=== PATIENT | female | born 1950 | race Caucasian/White ===

== ENCOUNTER 2019-12-28 10:35 | Emergency (ER) | payer MEDICARE, OTHER, SELFPAY ==
--- NOTE | ~2019-12-28 | XR_ITS ---
EXAMINATION: XR lumbar spine min 4V EXAM DATE: 12/28/2019 11:25 INDICATION: Back pain. TECHNIQUE: Lumber spine frontal, lateral, bilateral oblique projections. Coned down frontal and lat eral L5-S1 lumbar projections for interpretation. There is no prior study for comparison. FINDINGS: There is moderate disc disease L5-S1, mild to moderate at L4-5 and mild at the upper lumbar levels. There is mild to moderate lumbar facet arthropathy. No spondylolysis. 2 mm anterolisthesis L 4 on L5. The vertebral bodies are otherwise aligned. Sacrum, sacroiliac joints, sacral arcuate lines are intact. There are no bony erosions identified. Paraspinal soft tissue is unremarkable. IMPRESSION: Mild to moderate lumbar spondylosis. No acute findings. Reviewed, dictated and finalized at location [facility]. [employer]
[2019-12-28 10:39] VITALS: BP 146/70; PULSE 98; RESP 16; TEMP 36.7; O2SAT 100
--- NOTE | 2019-12-28 11:09 | ED.BACK ---
HPI - Back Pain/Injury General Chief Complaint: Back Pain/Injury Stated Complaint: right lower back and leg pain Time Seen by Provider: 12/28/19 10:53 Source: patient and RN notes reviewed Mode of arrival: ambulatory Limitations: no limitations History of Present Illness HPI Narrative: Pt is a 69 y/o female who presents to the ED with c/o rt low back pain starting 4 days ago. She notes that her pain radiates into her rt groin and down into her rt knee. Pt states that she has tried using both ice and heat on her back, but denies having any relief of her symptoms. She currently denies any fever, rash, or numbness/tingling. MD elicited complaint: back pain Onset (ago): day(s) (4) Location: right lower back Radiation: right upper leg (rt groin into rt knee) Relieving factors: none Associated symptoms: denies other symptoms Treatments prior to arrival: cold therapy and heat therapy Related Data Home Medications Medication Instructions Recorded Confirmed cetirizine 10 mg tablet 10 mg PO DAILY tablet 11/09/19 multivitamin 1 tablet PO DAILY 11/09/19 simvastatin 20 mg tablet 20 mg PO DAILY 11/09/19 Allergies Allergy/AdvReac Type Severity Reaction Status Date / Time Sulfa (Sulfonamide Allergy Severe Other Verified 12/28/19 11:44 Antibiotics) aspirin Allergy Mild Anxiety Verified 12/28/19 11:44 codeine Allergy Mild aggrevates Verified 12/28/19 11:44 ulcer naproxen Allergy Mild Swelling Verified 12/28/19 11:44 of Lip/Tongue/Throat celecoxib [From Celebrex] AdvReac Ulcers Verified 12/28/19 11:44 NSAIDS (Non-Steroidal AdvReac Ulcers Verified 12/28/19 11:44 Anti-Inflamma Review of Systems Review of Systems: All systems reviewed & are unremarkable except as noted in HPI and below Constitutional: Constitutional: Denies fever(s) Musculoskeletal: Musculoskeletal: Reports back pain (rt low back pain radiating into rt groing and down into rt knee) Integumentary/Breasts: Skin/Breast: Denies rash Neurologic: Denies numbness and Denies tingling PMFSH Past Medical History Medical History Anxiety disorder, unspecified Arthritis Bronchitis Gastric ulcer Gastro-esophageal reflux disease without esophagitis Hx of colonic polyps Left inguinal hernia Migraines Mitral valve prolapse Pneumonia Pure hypercholesterolemia Shingles UTI (urinary tract infection) Surgical History Surgical History History of lumpectomy of left breast Hx of section Hx of left inguinal hernia repair Hx of tubal ligation Social History Social History Smoking status: Former smoker Second hand tobacco smoke exposure: No Smoking end date: 11/17/71 Alcohol intake: current Comments PCP is Dr. Goldberg. Exam Narrative: Exam Narrative: APPEARANCE: No acute distress, nontoxic, resting in bed EYES: EOMI HEENT: Normocephalic, atraumatic, OMM RESPIRATORY: No respiratory distress Clear to auscultation bilaterally with no rhonchi wheezing or rales. CARDIOVASCULAR: Regular rate and rhythm without murmurs rubs or gallops. ABDOMINAL: Soft, nontender, nondistended, no rebound or guarding Back: No midline tenderness of the thoracic or lumbar spine, to palpation right paravertebral L4 and 5, and right piriformis region MUSCULOSKELETAl: Moves all extremities. No clubbing, cyanosis or edema. NEURO: Awake and alert. Following commands, speech normal, no focal deficits muscle strength 5 out of 5 in the bilateral lower extremities SKIN:: Warm, dry. No rashes lesions or abrasions PSYCHIATRIC: Normal affect/mood, Course Course Emergency Course: Patient states the only pain medication she can take is acetaminophen states that she cannot take aspirin or ibuprofen Discussed with patient results of workup and diagnosis. Discussed need for follow-up with primary care, proper use of medicati
--- NOTE | 2019-12-28 11:23 | PC.NURSE ---
Patient in radiology at this time.
[2019-12-28 11:48] LABS: Add Urine Microscopic? YES; Appearance Urine Clear (Clear); Bacteria Urine Trace /hpf; Bilirubin Urine Negative (Negative); Blood Urine Negative (Negative); Color Urine Yellow (Yellow); Glucose Urine UA Negative (Negative); Ketones Urine Negative (Negative); Leukocyte Esterase Ur Negative LEU/UL (Negative); Mucus Urine Rare /lpf; Nitrate Urine Negative (Negative); Protein Urine Negative (Negative); Specific Grav Ur 1.012 (1.001-1.035); Squamous Epithelial Cell Urine Rare /hpf (Few); Urobilinogen Urine Negative mg/dL (<2.0); WBC Urine 0-3 /hpf
== END 2019-12-28 13:13 | disposition home or self-care (01) ==
PROVIDERS: Emergency Provider Emergency Medicine; PCP Internal Medicine
DX: M54.5 Low back pain (principal); M47.816 Spondylosis without myelopathy or radiculopathy, lumbar region; Z87.891 Personal history of nicotine dependence; F41.9 Anxiety disorder, unspecified; K21.9 Gastro-esophageal reflux disease without esophagitis; I34.1 Nonrheumatic mitral (valve) prolapse; E78.00 Pure hypercholesterolemia, unspecified; Z87.440 Personal history of urinary (tract) infections
CPT/HCPCS: 72110; 81001; 99283

== ENCOUNTER 2020-01-01 09:24 | Emergency (ER) | payer MEDICARE, OTHER, SELFPAY ==
[2020-01-01 09:39] VITALS: BP 145/88; PULSE 95; RESP 18; TEMP 36.5; O2SAT 99
--- NOTE | 2020-01-01 10:40 | ED.GENADULT ---
HPI - General Adult General Chief complaint: Skin/Abscess/Foreign Body Stated complaint: rash/pain Time Seen by Provider: 01/01/20 09:33 Source: patient Mode of arrival: ambulatory Limitations: no limitations History of Present Illness HPI narrative: Patient is a 69-year-old female who presents to emergency department for evaluation of rash to the right thigh where she has had pain for 9 days patient was seen in the emergency department diagnosed with sciatica a few days ago placed on steroids which she has been taking with no improvement in noting that today she developed a rash patient notes numbness and burning pain to the thigh patient notes small lesions on the thigh patient notes she has had a similar occurrence diagnosed as shingles. Pain is worse with activity and movement Related Data Home Medications Medication Instructions Recorded Confirmed cetirizine 10 mg tablet 10 mg PO DAILY tablet 11/09/19 multivitamin 1 tablet PO DAILY 11/09/19 simvastatin 20 mg tablet 20 mg PO DAILY 11/09/19 Allergies Allergy/AdvReac Type Severity Reaction Status Date / Time Sulfa (Sulfonamide Allergy Severe Other Verified 01/01/20 09:37 Antibiotics) aspirin Allergy Mild Anxiety Verified 01/01/20 09:37 codeine Allergy Mild aggrevates Verified 01/01/20 09:37 ulcer naproxen Allergy Mild Swelling Verified 01/01/20 09:37 of Lip/Tongue/Throat celecoxib [From Celebrex] AdvReac Ulcers Verified 01/01/20 09:37 NSAIDS (Non-Steroidal AdvReac Ulcers Verified 01/01/20 09:37 Anti-Inflamma Review of Systems Review of Systems: All systems reviewed & are unremarkable except as noted in HPI and below PMFSH Past Medical History Medical History Anxiety disorder, unspecified Arthritis Bronchitis Gastric ulcer Gastro-esophageal reflux disease without esophagitis Hx of colonic polyps Left inguinal hernia Migraines Mitral valve prolapse Pneumonia Pure hypercholesterolemia Shingles UTI (urinary tract infection) Surgical History Surgical History History of lumpectomy of left breast Hx of section Hx of left inguinal hernia repair Hx of tubal ligation Social History Social History Smoking status: Former smoker Second hand tobacco smoke exposure: No Smoking end date: 11/17/71 Alcohol intake: current Gender identity (if verbalized by the patient): Female Exam Narrative: Exam Narrative: GENERAL: Well-appearing, well-nourished, and in no acute distress. HEAD: Normocephalic, atraumatic. EYES: PERRLA and EOMI. ENT: Nares clear, no rhinorrhea or epistaxis. Mucous membranes moist. CHEST: Clear to auscultation. No respiratory distress. No wheezes rales or rhonchi HEART: Regular rate and rhythm. No murmur heard. Normal peripheral pulses. EXTREMITIES: Normal range of motion. No edema. SKIN: Warm, dry, a few small lesions of the right thigh noted with tenderness of the thigh remainder of extremity nontender no deformity NEURO: No focal deficits. Alert and oriented x3. Cranial nerves II through XII grossly intact. Neurovascularly intact. Capillary refill less than 2 seconds PSYCH: Normal mood and affect. Course Course Emergency Course: Patient in the room in no distress aware of case findings treatment plan and diagnosis agreeing to follow-up as directed Vital Signs Vital signs: Vital Signs Temperature 97.7 F 01/01/20 09:39 Pulse Rate 95 01/01/20 09:39 Respiratory Rate 18 01/01/20 09:39 Blood Pressure 145/88 H 01/01/20 09:39 Pulse Oximetry 99 01/01/20 09:39 Temperature 97.7 F 01/01/20 09:39 Pulse Rate 95 01/01/20 09:39 Respiratory Rate 18 01/01/20 09:39 Blood Pressure 145/88 H 01/01/20 09:39 Pulse Oximetry 99 01/01/20 09:39 Medical Decision Making MDM Narrative Medical decision making
[2020-01-01 11:03] VITALS: BP 118/75; PULSE 78; RESP 16; O2SAT 100
== END 2020-01-01 11:04 | disposition home or self-care (01) ==
PROVIDERS: Emergency Provider Emergency Medicine; PCP Internal Medicine
DX: M79.651 Pain in right thigh (principal); M54.30 Sciatica, unspecified side; F41.9 Anxiety disorder, unspecified; M19.90 Unspecified osteoarthritis, unspecified site; K21.9 Gastro-esophageal reflux disease without esophagitis; I34.1 Nonrheumatic mitral (valve) prolapse; E78.00 Pure hypercholesterolemia, unspecified; Z87.440 Personal history of urinary (tract) infections; Z87.891 Personal history of nicotine dependence
CPT/HCPCS: 99283

== ENCOUNTER 2020-05-27 13:57 | Emergency (ER) | payer MEDICARE, OTHER, SELFPAY ==
--- NOTE | ~2020-05-27 | CT_ITS ---
EXAMINATION: CT abdomen pelvis w con DATE: 05/27/2020 18:21 INDICATION: Lower abdominal pain TECHNIQUE: Computed tomography (CT) of the abdomen and pelvis was performed with 100 cc Omnipaque 350 intravenous contrast. The dose-length product was 254.71 mGy-cm. Automated exposure control and iter ative reconstruction technique were employed. COMPARISON: CT dated 04/16/2019 FINDINGS: Lung bases are unremarkable. Heart size normal. No significant pleural or pericardial effus ion. No significant vascular abnormality. No lymphadenopathy. The liver, spleen, pancreas, adrenal glands are unremarkable. There are bilateral renal cysts. There is mild-moderate lumbar spondylosis at L4-5 and L5-S1. No acute osseous abnormality. No abnormal pelv ic masses or fluid collections. IMPRESSION: 1. No acute abdominal abnormality. No findings to account for patient's symptoms. Reviewed, dictated and finalized at location A. IMPRESSION: 1. No acute abdominal abnormality. No findings to account for patient's symptom s.
[2020-05-27 14:06] VITALS: BP 132/78; PULSE 106; RESP 18; TEMP 36.6; O2SAT 99
[2020-05-27 14:47] LABS: Add Urine Microscopic? YES; Appearance Urine Clear (Clear); Bacteria Urine Trace /hpf; Bilirubin Urine Negative (Negative); Blood Urine 2+ (Negative); Calcium Oxalate Crystals Urine Present /hpf; Color Urine Yellow (Yellow); Glucose Urine UA Negative (Negative); Ketones Urine Negative (Negative); Leukocyte Esterase Ur Negative LEU/UL (Negative); Mucus Urine Rare /lpf; Nitrate Urine Negative (Negative); Protein Urine Negative (Negative); Specific Grav Ur 1.019 (1.001-1.035); Squamous Epithelial Cell Urine Rare /hpf (Few); Urobilinogen Urine Negative mg/dL (<2.0); WBC Urine 0-3 /hpf
--- NOTE | 2020-05-27 15:41 | ED.ABDPAIN ---
HPI - Abdominal Pain General Chief Complaint: Urogenital-Female Stated Complaint: Possible Kidney Infection Time Seen by Provider: 05/27/20 15:25 Source: patient Mode of arrival: ambulatory Limitations: no limitations History of Present Illness HPI narrative: This patient is a 69 year old female who presents for evaluation of lower abdominal pressure. She reports intermittent lower abdominal pressure for 2 weeks. She also reports lower back pain. She thinks she may have urinary tract infection since she has intermittent increase in urinary frequency and hesitancy. She denies fever or diarrhea. She had 2 bowel movements today. She had 1 episodes of nausea and vomiting last week. MD elicited complaint: abdominal pain Onset (ago): week(s) (2) Related Data Home Medications Medication Instructions Recorded Confirmed cetirizine 10 mg tablet 10 mg PO DAILY tablet 11/09/19 multivitamin 1 tablet PO DAILY 11/09/19 Allergies Allergy/AdvReac Type Severity Reaction Status Date / Time Sulfa (Sulfonamide Allergy Severe Other Verified 05/27/20 15:25 Antibiotics) aspirin Allergy Mild Anxiety Verified 05/27/20 15:25 codeine Allergy Mild aggrevates Verified 05/27/20 15:25 ulcer naproxen Allergy Mild Swelling Verified 05/27/20 15:25 of Lip/Tongue/Throat celecoxib [From Celebrex] AdvReac Ulcers Verified 05/27/20 15:25 NSAIDS (Non-Steroidal AdvReac Ulcers Verified 05/27/20 15:25 Anti-Inflamma Review of Systems Review of Systems: All systems reviewed & are unremarkable except as noted in HPI and below Constitutional: Constitutional: Denies chills and Denies fever(s) Respiratory: Respiratory: Denies cough and Denies dyspnea Gastrointestinal: Gastrointestinal: Reports abdominal pain, Denies constipation, Denies diarrhea, Reports nausea and Reports vomiting Genitourinary: Genitourinary: Reports nocturia and Reports flank pain Musculoskeletal: Musculoskeletal: Reports back pain Neurologic: Denies numbness PMFSH Social History Social History Smoking status: Former smoker Second hand tobacco smoke exposure: No Smoking end date: 11/17/71 Alcohol intake: current Gender identity (if verbalized by the patient): Female Exam Narrative: Exam Narrative: GENERAL: Well-appearing, well-nourished, and in no acute distress. HEAD: Normocephalic, atraumatic NOSE: Nares clear, no rhinorrhea or epistaxis THROAT:Mucous membranes moist, Oropharynx normal without erythema, exudate, peritonsillar swelling or fluctuance NECK: Supple, without lymphadenopathy or mass RESPIRATORY: No respiratory distress, Airway patent, Respirations non-labored, Clear to auscultation without rales, rhonchi or wheeze HEART: Regular rate and rhythm. No murmur heard. Normal peripheral pulses. ABDOMEN: Soft, nontender, nondistended, normal active bowel sounds. No masses. No rebound or guarding, No organomegaly. EXTREMITIES: No edema, normal strength with full range of motion. SKIN: Warm, dry, normal color without rash NEURO: Alert and oriented x3. CN 2-12 grossly intact. No focal deficits. PSYCH: Normal mood and affect. Course Reevaluation(s) Reevaluation #1: I Discussed with patient labs and CT are unremarkable. She will follow up her insurance follow up rep or urologist. Date: 05/27/20 Time: 19:10 Vital Signs Vital signs: Vital Signs Temperature 97.8 F 05/27/20 14:06 Pulse Rate 106 H 05/27/20 14:06 Respiratory Rate 18 05/27/20 14:06 Blood Pressure 132/78 05/27/20 14:06 Pulse Oximetry 99 05/27/20 14:06 Temperature 97.8 F 05/27/20 14:06 Pulse Rate 90 05/27/20 19:17 Respiratory Rate 18 05/27/20 19:17 Blood Pressure 133/96 H 05/27/20 19:17 Pulse Oximetry 100 05/27/20 19:17 MDM - Abdominal Pain Lab Data Attestation: I reviewed the patient's lab results. Result diagrams: 05/27/20 16:47 05/27/20 16:48
[2020-05-27 16:57] LABS: Basophils Absolute Auto 0.1 K/mm3 (0.0-0.1); Basophils Percent Auto 0.8 % (0.2-1.2); Eosinophils Absolute Auto 0.3 K/mm3 (0-0.3); Eosinophils Percent Auto 5.1 % (0-4.4); Hematocrit 40.8 % (37.0-47.0); Hemoglobin 13.5 g/dL (12.0-15.0); Immature Granulocyte Absolute 0.01 K/mm3 (0.00-0.031); Immature Granulocyte Percent A 0.2 % (0-0.5); Lymphocytes Absolute Auto 1.96 K/mm3 (0.9-3.2); Lymphocytes Percent Auto 32.5 % (18.3-44.2); Mean Corpuscular HGB Conc 33.1 g/dl (32-36); Mean Corpuscular Hemoglobin 29.6 pg (26-34); Mean Corpuscular Volume 89.5 fl (80-100); Mean Platelet Volume 9.1 fl (7.4-10.4); Monocytes Absolute Auto 0.3 K/mm3 (0.1-0.6); Neutrophils Absolute Auto 3.4 K/mm3 (1.3-6.7); Neutrophils Percent Auto 56.4 % (45.5-73.1); Platelet Count Result 275 k/mm3 (150-375); Red Blood Count 4.56 M/mm3 (4.2-5.4); Red Cell Distribution Width 12.7 % (11.5-14.5)
--- NOTE | 2020-05-27 17:08 | PC.NURSE ---
Pt's bladder scanned prior to voiding, avg 70cc of urine in bladder per suprapubic scan. Pt voided per toilet, states I feel like a lot came out. It had a pinkish/orangish color to it and didn't burn this time like before . Pt states she feels like she emptied her bladder. Bladder rescanned, found 13ml's of urine x1 scan and the rest read 0ml's. Pt tolerated both pre and post void scans poorly c/o pain to entire abdomen throughout procedure.
[2020-05-27 17:09] LABS: Alanine Aminotransferase 21 U/L (4-35); Albumin Level 4.7 g/dL (3.5-5.1); Alkaline Phosphatase 79 U/L (38-126); Aspartate Amino Transferase 28 U/L (14-36); Bilirubin,Total 0.3 mg/dL (0.2-1.3); Blood Urea Nitrogen 15 mg/dL (7-17); Calcium 9.1 mg/dL (8.4-10.2); Carbon Dioxide 26 mmol/L (22-30); Chloride 105 mmol/L (98-107); Estimated CRCL calculation 59 ml/min; Estimated Glomerular Filt Rate > 60; Glucose 90 mg/dL (65-105); Potassium 3.7 mmol/L (3.4-5.0); Sodium 140 mmol/L (137-145)
[2020-05-27 19:17] VITALS: BP 133/96; PULSE 90; RESP 18; O2SAT 100
== END 2020-05-27 19:20 | disposition home or self-care (01) ==
PROVIDERS: Emergency Medicine Emergency Medical Services; Emergency Provider General Practice; PCP Internal Medicine
DX: R10.30 Lower abdominal pain, unspecified (principal); Z87.891 Personal history of nicotine dependence
CPT/HCPCS: 36415; 74177; 80053; 81001; 85025; 99284; Q9967

== ENCOUNTER 2020-07-05 12:32 | Outpatient (CLI) | payer MEDICARE, OTHER, SELFPAY ==
--- NOTE | 2020-07-05 12:49 | ECHO_ITS ---
Patient Info Name: Danna Gaines Age: 69 years : 1950 Gender: Female Ht: 62 in Wt: 130 lbs BSA: 1.62 m2 HR: 79 bpm BP: 139 / 76 mmHg Heart Rhythm: Sinus Rhythm Technical Quality: Good Exam Date: 07/05/2020 1:21 PM Exam Location: [facility] Patient Status: Outpatient Admit Date: 07/05/2020 Staff Ordering Physician: Stewart Goldberg DO Supervisor [employer]: Louise Moon RDCS Attending Provider: Stewart Goldberg DO Referring Physician: Ashlyn FOSTER; Exam Type: CA echo doppler color flow Study Info Indications - palpitations Complete two-dimensional, color flow and Doppler transthoracic echocardiogram is performed. Summary 1. Left ventricular systolic function is normal, estimated at 60-65%. 2. There is no increased left ventricular wall thickness. 3. The left ventricular diastolic function is grade I diastolic dysfunction. 4. There is no aortic valve stenosis. 5. There is trace mitral valve regurgitation. 6. There is trace tricuspid valve regurgitation. Left Ventricle Left ventricular systolic function is normal, estimated at 60-65%. Left ventricular chamber dimension is normal. There is no increased left ventricular wall thickness. The left ventricular diastolic function is grade I diastolic dysfunction. Right Ventricle Right ventricular chamber dimension is normal. Right ventricular systolic function is normal. Left Atria Left atrial chamber dimension is normal. Right Atria Right atrial chamber dimension is normal. Aortic Valve The aortic valve is not well visualized. There is no aortic valve stenosis. There is no aortic valve regurgitation. Pulmonic Valve The pulmonic valve is not well visualized. There is trace pulmonic regurgitation. Mitral Valve The mitral valve has normal leaflets. There is trace mitral valve regurgitation. Tricuspid Valve The tricuspid valve leaflets are normal. There is trace tricuspid valve regurgitation. Pericardium/Pleural The pericardium appears normal. There is trivial pericardial effusion. Inferior Vena Cava Normal inferior vena cava with >50% collapse upon inspiration consistent with normal right atrial pressure, 5 mmHg. Aorta The aortic root size at the sinus of Valsalva is normal. Left Ventricular Outflow Tract Name Value Normal LVOT 2D LVOT Diameter 2.0 cm LVOT Doppler LVOT Peak Gradient 3 mmHg LVOT Mean Gradient 2 mmHg LVOT VTI 19 cm LVOT VTI/AV VTI Ratio 0.7 LVOT Stroke Volume 57 ml LVOT CO 11.5 l/min LVOT CI 7.1 l/min/m2 Pulmonic Valve Name Value Normal PV Doppler PV Peak Gradient 2 mmHg Mitral Valve -
--- NOTE | 2020-07-07 12:34 | WPDHOLTEREM ---
Holter/Event Monitor Holter/Event Monitor Date of procedure: 07/05/20 Procedure Type: 24 hour holter monitor Indications: Palpitations Conclusion: 1. 24 hour holter monitor on 07/05/20. 2. Underlying rhythm is sinus rhythm. HR range 62-128 bpm; average HR 87 bpm. 3. There are 26 premature supraventricular complexes. No supraventricular tachycardia. 4. There are 109 premature ventricular complexes and 2 ventricular couplets. No ventricular tachycardia. 5. No sinoatrial or atrioventricular blocks. No significant pauses greater than 2 seconds. 6. Patient reports symptoms of shortness of breath and back pain which demonstrate Sinus rhythm, HR range 97-119 bpm.
== END 2020-07-05 12:33 | disposition home or self-care (01) ==
PROVIDERS: PCP Internal Medicine; Visit Provider Internal Medicine
DX: R00.2 Palpitations (principal)
CPT/HCPCS: 93225; 93226; 93306

== ENCOUNTER → 2021-01-08 09:55 | Outpatient (CLI) | payer MEDICARE, OTHER, SELFPAY ==
[2021-01-09 14:42] LABS: SARS-CoV-2 RNA PCR Positive
== END ==
PROVIDERS: PCP Internal Medicine; Visit Provider Internal Medicine
DX: U07.1 COVID-19 (principal); R05 Cough
CPT/HCPCS: C9803; U0003; U0005

== ENCOUNTER 2021-01-11 13:10 | Outpatient (RCR) | payer MEDICARE, OTHER, SELFPAY ==
[2021-01-11] MEDS: diphenhydrAMINE HCl CAP 25 MG CAPSULE PO (13:41)
[2021-01-11] MEDS: FAMOTIDINE 20 MG TABLET PO (13:42)
[2021-01-11] MEDS: ACETAMINOPHEN 325 MG TABLET 650 MG PO (13:42)
[2021-01-11 13:54] VITALS: BP 117/56; PULSE 98; RESP 16; TEMP 37.3; O2SAT 96
--- NOTE | 2021-01-11 14:50 | PC.NURSE ---
Patient given discharge instructions on antibody treatment and facts sheet on covid and Bamlanivimab with understanding stated to instruction.
[2021-01-11 15:23] VITALS: BP 111/51; PULSE 91; O2SAT 97
== END 2021-01-11 16:30 | disposition home or self-care (01) ==
LOC: AMCINF 13:10
PROVIDERS: PCP Internal Medicine; Visit Provider Internal Medicine Hematology & Oncology
DX: Z23 Encounter for immunization (principal); U07.1 COVID-19
CPT/HCPCS: A9270; M0239; Q0239

== ENCOUNTER 2022-05-14 01:24 | Day surgery (SDC) | payer MEDICARE, OTHER, SELFPAY ==
[2022-04-25 14:52] VITALS: BMI 23.3
[2022-05-14 09:40] VITALS: BP 169/74; PULSE 89; RESP 16; TEMP 36.6; O2SAT 100; BMI 23.8
--- NOTE | 2022-05-14 09:53 | PM.IMHP ---
H&P: HPI History of Present Illness Date/Time: 05/14/22 09:53 Chief Complaint: Dysphagia. Narrative: This is a 71-year-old white female patient referred for difficulty swallowing. She states she has a funny sensation in her throat. She states that often times she will eat food in the regurgitate phlegm. The not always the food that she eats. This been going on for many years. She has recently had epigastric discomfort that she states has rather significant. This is not responded to current medications. That include omeprazole 20mg p.o. daily. Patient denies any heartburn. She denies any weight loss. EGD 3 years ago was unremarkable but empiric dilatation was performed. She is uncertain whether this made any difference in her swallowing. Patient also has a Family history of colon cancer. Most recent colonoscopy 2018 was unremarkable. She anticipates follow-up colonoscopy in 2 years. Review of Systems Review of Systems: Noncontributory review of systems. [facility] Past Medical History Medical History (Updated 05/14/22 @ 09:56 by Stef Lagos MD) Anxiety disorder, unspecified Arthritis Bronchitis Gastric ulcer Gastro-esophageal reflux disease without esophagitis Hx of colonic polyps Left inguinal hernia Migraines Mitral valve prolapse Pneumonia Pure hypercholesterolemia Shingles UTI (urinary tract infection) Surgical History Surgical History History of lumpectomy of left breast Hx of section Hx of left inguinal hernia repair Hx of tubal ligation Family History Family History Father Carcinoma of colon Mother Acute myocardial infarction Heart disease Sibling Brain aneurysm Colon cancer Other Family history of malignant neoplasm of breast Social History Social History Smoking status: Never smoker Second hand tobacco smoke exposure: No Smoking end date: 11/17/71 Alcohol intake: current Drinks per week: 3 Substance use: never Substance use type: does not use Living arrangements: with family Gender identity (if verbalized by the patient): Female Spiritual care concerns: No Meds Home Medications and Allergies Home Medications Medication Instructions Recorded Confirmed Type cetirizine 10 mg tablet (Zyrtec) 10 mg PO DAILY 11/09/19 05/14/22 History multivitamin (Multiple Vitamins 1 tablet PO DAILY 11/09/19 05/14/22 History tablet) alprazolam 0.5 mg tablet 0.5 mg PO BID PRN anxiety #20 tabs 12/18/21 05/14/22 Rx simvastatin 20 mg tablet 20 mg PO DAILY #90 tabs 02/27/22 05/14/22 Rx fluticasone propionate 50 2 spray intranasal DAILY #15.8 mL 04/17/22 05/14/22 Rx mcg/actuation nasal spray,suspension omeprazole 20 mg capsule,delayed 20 mg PO DAILY #90 caps 04/21/22 05/14/22 Rx release Zinc 15 mg PO DAILY 04/25/22 05/14/22 History cholecalciferol (vitamin D3) 25 25 mcg PO DAILY 04/25/22 05/14/22 History mcg (1,000 unit) capsule Allergies Allergy/AdvReac Type Severity Reaction Status Date / Time Sulfa (Sulfonamide Allergy Severe Other Verified 05/14/22 09:47 Antibiotics) aspirin Allergy Mild Anxiety Verified 05/14/22 09:47 codeine Allergy Mild aggrevates Verified 05/14/22 09:47 ulcer naproxen Allergy Mild Swelling Verified 05/14/22 09:47 of Lip/Tongue/Throat celecoxib [From Celebrex] AdvReac Ulcers Verified 05/14/22 09:47 NSAIDS (Non-Steroidal AdvReac Ulcers Verified 05/14/22 09:47 Anti-Inflamma Vital Signs Vital Signs - 24 hr 05/14/22 09:40 Temperature 97.8 F Pulse Rate 89 Respiratory Rate 16 Blood Pressure 169/74 H Pulse Oximetry 100 Oxygen Delivery Room Air Exam Narrative: Physical exam reveals patient to be alert. Vital signs stable. HEENT exam is unremarkable. Patient is anicteric. Lungs are clear to
[2022-05-14] MEDS: LACTATED RINGERS 1,000 ML 150 ML IV CONT (10:04)
[2022-05-14] MEDS: BENZOCAINE (*SP) 60 ML SPRAY CAN (HURRICAINE) 1 SPRAY MUCOUS MEM (10:57)
--- NOTE | 2022-05-14 10:59 | WPDANESEPPF ---
Anes - Initial Pre Proc Eval Procedure: Operation Date: 05/14/22 11:15 Proposed Procedures p Esophagogastroduodenoscopy - Stef Lagos MD Date/Time: 05/14/22 10:59 Surgeon: Stef Lagos MD Pre Op Diagnosis: dysphagia Patient Data Age: 71 Gender: F Height: 1.57 m Weight: 59.2 kg Last Vital Signs Temp 97.8 F 05/14/22 09:40 Pulse 89 05/14/22 09:40 Resp 16 05/14/22 09:40 BP 169/74 H 05/14/22 09:40 Pulse Ox 100 05/14/22 09:40 O2 Del Method Room Air 05/14/22 09:40 Allergies Allergy/AdvReac Type Severity Reaction Status Date / Time Sulfa (Sulfonamide Allergy Severe Other Verified 05/14/22 09:47 Antibiotics) aspirin Allergy Mild Anxiety Verified 05/14/22 09:47 codeine Allergy Mild aggrevates Verified 05/14/22 09:47 ulcer naproxen Allergy Mild Swelling Verified 05/14/22 09:47 of Lip/Tongue/Throat celecoxib [From Celebrex] AdvReac Ulcers Verified 05/14/22 09:47 NSAIDS (Non-Steroidal AdvReac Ulcers Verified 05/14/22 09:47 Anti-Inflamma Home Medications Medication Instructions Recorded Confirmed Type cetirizine 10 mg tablet (Zyrtec) 10 mg PO DAILY 11/09/19 05/14/22 History multivitamin (Multiple Vitamins 1 tablet PO DAILY 11/09/19 05/14/22 History tablet) alprazolam 0.5 mg tablet 0.5 mg PO BID PRN anxiety #20 tabs 12/18/21 05/14/22 Rx simvastatin 20 mg tablet 20 mg PO DAILY #90 tabs 02/27/22 05/14/22 Rx fluticasone propionate 50 2 spray intranasal DAILY #15.8 mL 04/17/22 05/14/22 Rx mcg/actuation nasal spray,suspension omeprazole 20 mg capsule,delayed 20 mg PO DAILY #90 caps 04/21/22 05/14/22 Rx release Zinc 15 mg PO DAILY 04/25/22 05/14/22 History cholecalciferol (vitamin D3) 25 25 mcg PO DAILY 04/25/22 05/14/22 History mcg (1,000 unit) capsule Patient hx anesthesia problems: none Family hx anesthesia problems: none Results Review: All pre-operative results and documents have been reviewed as part of the pre-operative evaluation. [facility] Past Medical History Medical History (Updated 05/14/22 @ 09:56 by Stef Lagos MD) Anxiety disorder, unspecified Arthritis Bronchitis Gastric ulcer Gastro-esophageal reflux disease without esophagitis Hx of colonic polyps Left inguinal hernia Migraines Mitral valve prolapse Pneumonia Pure hypercholesterolemia Shingles UTI (urinary tract infection) Surgical History Surgical History History of lumpectomy of left breast Hx of section Hx of left inguinal hernia repair Hx of tubal ligation Family History Family History Father Carcinoma of colon Mother Acute myocardial infarction Heart disease Sibling Brain aneurysm Colon cancer Other Family history of malignant neoplasm of breast Social History Social History Smoking status: Never smoker Second hand tobacco smoke exposure: No Smoking end date: 11/17/71 Alcohol intake: current Drinks per week: 3 Substance use: never Substance use type: does not use Living arrangements: with family Gender identity (if verbalized by the patient): Female Spiritual care concerns: No Anes - Eval Final PreProcedure Day of Procedure 05/14/22 10:59 Patient weight: normal Heart: regular rate and rhythm Lungs: clear to auscultation Airway: Mallampati scale class II Neurological: alert and oriented Last oral intake: >/= 8 hours ASA classification: II Emergent: no Anesthetic plan: proceed Anesthesia type and monitoring: general GIVS and standard monitoring Results Review: All pre-operative results and documents have been reviewed as part of the pre-operative evaluation. Informed Consent: The patient's anesthetic plan and its attendant risks and benefits were discussed with the patient/family/POA. Questions were solicited and
[2022-05-14 11:06] VITALS: BP 135/68; PULSE 79; RESP 19; O2SAT 100
[2022-05-14 11:16] VITALS: BP 150/72; PULSE 75; RESP 23; O2SAT 99
[2022-05-14 11:26] VITALS: BP 154/81; PULSE 71; RESP 16; O2SAT 96
== END 2022-05-14 11:29 | disposition home or self-care (01) ==
PROVIDERS: PCP Internal Medicine; Visit Provider Internal Medicine Gastroenterology
PROC: 0DJ08ZZ Inspection of Upper Intestinal Tract, Via Natural or Artificial Opening Endoscopic (ICD-10-PCS; CPT 43235; principal; 2022-05-14 11:15)
DX: Q39.4 Esophageal web (principal); K21.00 Gastro-esophageal reflux disease with esophagitis, without bleeding; I34.1 Nonrheumatic mitral (valve) prolapse; F41.9 Anxiety disorder, unspecified; E78.00 Pure hypercholesterolemia, unspecified
CPT/HCPCS: 43450; 43235; J2704; J7120

== ENCOUNTER 2023-07-14 15:26 | Outpatient (CLI) | payer MEDICARE, OTHER, SELFPAY ==
--- NOTE | ~2023-07-14 | US_ITS ---
EXAMINATION: US renal BI DATE: 07/14/2023 15:56 INDICATION: Renal cysts. TECHNIQUE: Multiple ultrasound grayscale images of the kidneys were obtained. COMPARISON: CT abdomen and pelvis 05/27/2020 FINDINGS: The right kidney measures 9.6 x 5.3 x 4.9 cm. The left kidney measures 11.6 x 5.7 x 5.0 cm. The kidne ys demonstrate normal parenchymal echogenicity. There are cysts in the kidneys including peripelvic c ysts measuring up to 3.4 cm on the right. There is no hydronephrosis. The bladder is not well distend ed. IMPRESSION: 1. Benign cysts in the kidneys. Reviewed, dictated and finalized at location E.
== END 2023-07-14 15:27 | disposition home or self-care (01) ==
PROVIDERS: PCP Internal Medicine; Visit Provider Internal Medicine
DX: N28.1 Cyst of kidney, acquired (principal)
CPT/HCPCS: 76775

== ENCOUNTER 2024-09-02 05:38 | Day surgery (SDC) | payer MEDICARE, OTHER, SELFPAY ==
[2024-07-12 13:49] VITALS: BMI 24.2
[2024-08-16 11:05] VITALS: BMI 23.8
--- NOTE | 2024-09-01 17:03 | WPDANESEPP ---
Anes - Eval Pre Procedure Procedure: Operation Date: 09/02/24 07:30 Proposed Procedures p Diagnostic Colonoscopy - Stef Lagos MD Date/Time: 09/01/24 17:03 Pre Op Diagnosis: Family HX of Colon Cancer Patient Data Age: 73 Gender: F Height: 1.57 m Weight: 59 kg Allergies Allergy/AdvReac Type Severity Reaction Status Date / Time Sulfa (Sulfonamide Allergy Severe Chest Pain Verified 08/16/24 11:06 Antibiotics) aspirin Allergy Mild Anxiety Verified 08/16/24 11:06 codeine Allergy Mild aggrevates Verified 08/16/24 11:06 ulcer naproxen Allergy Mild Swelling Verified 08/16/24 11:06 of Lip/Tongue/Throat celecoxib [From Celebrex] AdvReac Ulcers Verified 08/16/24 11:06 NSAIDS (Non-Steroidal AdvReac Ulcers Verified 08/16/24 11:06 Anti-Inflamma Home Medications Medication Instructions Recorded Confirmed Type multivitamin (Multiple Vitamins 1 tablet PO DAILY 11/09/19 08/16/24 History tablet) cetirizine 10 mg tablet (Zyrtec) 10 mg PO DAILY #90 tabs 01/06/24 08/16/24 Rx cholecalciferol (vitamin D3) 25 25 mcg PO DAILY #90 caps 01/06/24 08/16/24 Rx mcg (1,000 unit) capsule omeprazole 40 mg capsule,delayed 40 mg PO DAILY #90 caps 01/06/24 08/16/24 Rx release simvastatin 40 mg tablet 40 mg PO DAILY #90 tabs 01/06/24 08/16/24 Rx sodium,potassium,mag sulfates 17.5 See Rx Instructions PO .COMPLEX 07/12/24 Rx gram-3.13 gram-1.6 gram oral soln #354 mL (Suprep Bowel Prep Kit) fluticasone propionate 50 2 spray intranasal DAILY #15.8 mL 07/28/24 08/16/24 Rx mcg/actuation nasal spray,suspension Patient hx anesthesia problems: none Family hx anesthesia problems: none Results Review: All pre-operative results and documents have been reviewed as part of the pre-operative evaluation. [facility] Past Medical History Medical History Anxiety Anxiety disorder, unspecified Arthritis Bronchitis Esophageal web Gastric ulcer Gastro-esophageal reflux disease without esophagitis GERD (gastroesophageal reflux disease) Hx of colonic polyps Hyperlipidemia LAE (left atrial enlargement) Left inguinal hernia Migraines Mitral valve prolapse Palpitations Pneumonia Pure hypercholesterolemia Shingles UTI (urinary tract infection) Surgical History Surgical History History of lumpectomy of left breast Hx of section Hx of left inguinal hernia repair Hx of tubal ligation Family History Family History Father Carcinoma of colon Mother Acute myocardial infarction Heart disease Sibling Brain aneurysm Colon cancer Other Family history of malignant neoplasm of breast Social History Social History Smoking status: Never smoker Second hand tobacco smoke exposure: No Smoking end date: 11/17/71 Alcohol intake: current Drinks per week: 4 Substance use: never Substance use type: does not use Lack of Transportation: No Lack of Food: Never True Current Housing: I Have Housing Concerned About Future Housing: No Difficulty Paying Gas/Electric Bills: No Difficulty Paying for Meds: No Currently Unemployed: No Education: High School Diploma/GED Difficulty w/ Childcare or Family Care: No Living arrangements: with family Gender identity (if verbalized by the patient): Female Spiritual care concerns: No Exam Day of Procedure 09/01/24 17:03 Patient weight: normal
[2024-09-02 06:22] VITALS: BP 184/84; PULSE 87; RESP 16; TEMP 36.7; O2SAT 100; BMI 24.0
--- NOTE | 2024-09-02 06:49 | WPDANESEPPF ---
Anes - Initial Pre Proc Eval Procedure: Operation Date: 09/02/24 07:30 Proposed Procedures p Diagnostic Colonoscopy - Stef Lagos MD Date/Time: 09/02/24 06:49 Surgeon: Stef Lagos MD Pre Op Diagnosis: Family HX of Colon Cancer Patient Data Age: 73 Gender: F Height: 1.57 m Weight: 59.6 kg Last Vital Signs Temp 36.7 C 09/02/24 06:22 Pulse 87 09/02/24 06:22 Resp 16 09/02/24 06:22 BP 184/84 H 09/02/24 06:22 Pulse Ox 100 09/02/24 06:22 O2 Del Method Room Air 09/02/24 06:22 Allergies Allergy/AdvReac Type Severity Reaction Status Date / Time Sulfa (Sulfonamide Allergy Severe Chest Pain Verified 09/02/24 06:15 Antibiotics) aspirin Allergy Mild Anxiety Verified 09/02/24 06:15 codeine Allergy Mild aggrevates Verified 09/02/24 06:15 ulcer naproxen Allergy Mild Swelling Verified 09/02/24 06:15 of Lip/Tongue/Throat celecoxib [From Celebrex] AdvReac Ulcers Verified 09/02/24 06:15 NSAIDS (Non-Steroidal AdvReac Ulcers Verified 09/02/24 06:15 Anti-Inflamma Home Medications Medication Instructions Recorded Confirmed Type multivitamin (Multiple Vitamins 1 tablet PO DAILY 11/09/19 09/02/24 History tablet) cetirizine 10 mg tablet (Zyrtec) 10 mg PO DAILY #90 tabs 01/06/24 09/02/24 Rx cholecalciferol (vitamin D3) 25 25 mcg PO DAILY #90 caps 01/06/24 09/02/24 Rx mcg (1,000 unit) capsule omeprazole 40 mg capsule,delayed 40 mg PO DAILY #90 caps 01/06/24 09/02/24 Rx release simvastatin 40 mg tablet 40 mg PO DAILY #90 tabs 01/06/24 09/02/24 Rx fluticasone propionate 50 2 spray intranasal DAILY #15.8 mL 07/28/24 09/02/24 Rx mcg/actuation nasal spray,suspension Patient hx anesthesia problems: none Family hx anesthesia problems: none Results Review: All pre-operative results and documents have been reviewed as part of the pre-operative evaluation. [facility] Past Medical History Medical History Anxiety Anxiety disorder, unspecified Arthritis Bronchitis Esophageal web Gastric ulcer Gastro-esophageal reflux disease without esophagitis GERD (gastroesophageal reflux disease) Hx of colonic polyps Hyperlipidemia LAE (left atrial enlargement) Left inguinal hernia Migraines Mitral valve prolapse Palpitations Pneumonia Pure hypercholesterolemia Shingles UTI (urinary tract infection) Surgical History Surgical History History of lumpectomy of left breast Hx of section Hx of left inguinal hernia repair Hx of tubal ligation Family History Family History Father Carcinoma of colon Mother Acute myocardial infarction Heart disease Sibling Brain aneurysm Colon cancer Other Family history of malignant neoplasm of breast Social History Social History Smoking status: Never smoker Second hand tobacco smoke exposure: No Smoking end date: 11/17/71 Alcohol intake: current Drinks per week: 4 Substance use: never Substance use type: does not use Lack of Transportation: No Lack of Food: Never True Current Housing: I Have Housing Concerned About Future Housing: No Difficulty Paying Gas/Electric Bills: No Difficulty Paying for Meds: No Currently Unemployed: No Education: High School Diploma/GED Difficulty w/ Childcare or Family Care: No Living arrangements: with family Gender identity (if verbalized by the patient): Female Spiritual care concerns: No Anes - Eval Final PreProcedure Day of Procedure 09/02/24 06:49 Patient weight: normal Heart: regular rate and rhythm Lungs: clear to auscultation and normal air movement Airway: Mallampati scale class II Neurological: alert and oriented Last oral intake: >/= 8 hours ASA classification: II Emergent: no An
[2024-09-02] MEDS: LACTATED RINGERS 1,000 ML 150 ML IV CONT (06:52)
--- NOTE | 2024-09-02 07:15 | PM.HPGS ---
History of Present Illness History of Present Illness Consent: Risks, benefits, and alternatives have been discussed and questions answered. Patient agrees to proceed with procedure. Chief complaint: Family HX of Colon Cancer Narrative: Danna Gaines is a 73 year old female colonoscopy. Patient's family history is significant her sister was recently diagnosed with colon cancer. Mother has colon polyps. Her father had colon cancer at an older age. Patient reports her bowel habits are normal. She has occasional abdominal bloating. Occasional rectal bleeding attributed to hemorrhoids. Patient presents today for surveillance colonoscopy. Review of Systems Review of Systems: All systems reviewed & are unremarkable except as noted in HPI and below PMFSH Past Medical History Medical History Anxiety Anxiety disorder, unspecified Arthritis Bronchitis Esophageal web Gastric ulcer Gastro-esophageal reflux disease without esophagitis GERD (gastroesophageal reflux disease) Hx of colonic polyps Hyperlipidemia LAE (left atrial enlargement) Left inguinal hernia Migraines Mitral valve prolapse Palpitations Pneumonia Pure hypercholesterolemia Shingles UTI (urinary tract infection) Surgical History Surgical History History of lumpectomy of left breast Hx of section Hx of left inguinal hernia repair Hx of tubal ligation Family History Family History Father Carcinoma of colon Mother Acute myocardial infarction Heart disease Sibling Brain aneurysm Colon cancer Other Family history of malignant neoplasm of breast Social History Social History Smoking status: Never smoker Second hand tobacco smoke exposure: No Smoking end date: 11/17/71 Alcohol intake: current Drinks per week: 4 Substance use: never Substance use type: does not use Lack of Transportation: No Lack of Food: Never True Current Housing: I Have Housing Concerned About Future Housing: No Difficulty Paying Gas/Electric Bills: No Difficulty Paying for Meds: No Currently Unemployed: No Education: High School Diploma/GED Difficulty w/ Childcare or Family Care: No Living arrangements: with family Gender identity (if verbalized by the patient): Female Spiritual care concerns: No Meds Home Medications and Allergies Home Medications Medication Instructions Recorded Confirmed Type multivitamin (Multiple Vitamins 1 tablet PO DAILY 11/09/19 09/02/24 History tablet) cetirizine 10 mg tablet (Zyrtec) 10 mg PO DAILY #90 tabs 01/06/24 09/02/24 Rx cholecalciferol (vitamin D3) 25 25 mcg PO DAILY #90 caps 01/06/24 09/02/24 Rx mcg (1,000 unit) capsule omeprazole 40 mg capsule,delayed 40 mg PO DAILY #90 caps 01/06/24 09/02/24 Rx release simvastatin 40 mg tablet 40 mg PO DAILY #90 tabs 01/06/24 09/02/24 Rx fluticasone propionate 50 2 spray intranasal DAILY #15.8 mL 07/28/24 09/02/24 Rx mcg/actuation nasal spray,suspension Allergies Allergy/AdvReac Type Severity Reaction Status Date / Time Sulfa (Sulfonamide Allergy Severe Chest Pain Verified 09/02/24 06:15 Antibiotics) aspirin Allergy Mild Anxiety Verified 09/02/24 06:15 codeine Allergy Mild aggrevates Verified 09/02/24 06:15 ulcer naproxen Allergy Mild Swelling Verified 09/02/24 06:15 of Lip/Tongue/Throat celecoxib [From Celebrex] AdvReac Ulcers Verified 09/02/24 06:15 NSAIDS (Non-Steroidal AdvReac Ulcers Verified 09/02/24 06:15 Anti-Inflamma Vital Signs Vital Signs - 24 hr 09/02/24 06:22 Temperature 98.1 F Pulse Rate 87 Respiratory Rate 16 Blood Pressure 184/84 H Pulse Oximetry 100 Oxygen Delivery Room Air Exam Narrative: Physical exam reveals patie
[2024-09-02] MEDS: SIMETHICONE ORAL SUSPENSION 20 MG/0.3 ML 30 ML BOTTLE 0.6 ML IRRIGATION (07:45)
[2024-09-02 07:46] VITALS: BP 131/63; PULSE 95; RESP 16; O2SAT 98
[2024-09-02 07:56] VITALS: BP 127/68; PULSE 85; RESP 16; O2SAT 97
[2024-09-02 08:06] VITALS: BP 150/78; PULSE 73; RESP 15; O2SAT 99
--- NOTE | 2024-09-02 12:42 | WPDANESPN ---
Anes - Prog Note Post-Op Date/Time: 09/02/24 12:42 Cardiovascular status: normal Respiratory status: normal Airway patency: baseline Mental status: baseline Post-Op hydration status: normal Vital Signs: Last Vital Signs Temp 36.7 C 09/02/24 06:22 Pulse 73 09/02/24 08:06 Resp 15 09/02/24 08:06 BP 150/78 H 09/02/24 08:06 Pulse Ox 99 09/02/24 08:06 O2 Del Method Room Air 09/02/24 08:06 Pain Score (VAS): 0 I/O: Intake & Output 09/01/24 09/02/24 09/02/24 23:59 07:59 15:59 Intake Total 650 Balance 650 Post-procedural complaints: none Patient Feedback: Patient satisfied with anesthetic care. Other Findings: Patient vital signs back to baseline. Patient denies nausea and vomiting. Patient's pain under control. Patient OK for discharge.
== END 2024-09-02 08:13 | disposition home or self-care (01) ==
PROVIDERS: PCP Internal Medicine; Visit Provider Internal Medicine Gastroenterology
PROC: 0DJD8ZZ Inspection of Lower Intestinal Tract, Via Natural or Artificial Opening Endoscopic (ICD-10-PCS; CPT 45378; principal; 2024-09-02 07:30)
DX: Z80.0 Family history of malignant neoplasm of digestive organs (principal); K57.30 Diverticulosis of large intestine without perforation or abscess without bleeding; K64.8 Other hemorrhoids
CPT/HCPCS: G0105

== ENCOUNTER 2024-11-30 11:20 | Emergency (ER) | payer MEDICARE, OTHER, SELFPAY ==
--- NOTE | ~2024-11-30 | XR_ITS ---
EXAMINATION: XR chest 2V DATE: 11/30/2024 12:03 INDICATION: Productive cough. TECHNIQUE: Frontal and lateral views of the chest were obtained. COMPARISON: Chest 2 views 01/12/2015 FINDINGS: There is mild scarring in the upper lobes. No pleural effusion or pneumothorax. The heart s ize is normal. IMPRESSION: 1. Stable mild scarring in the upper lobes. Reviewed, dictated and finalized at location A. [employer]STAT[employer]
--- NOTE | 2024-11-30 11:22 | ED_ITS ---
HPI - URI/Sore Throat General Chief Complaint: Upper Respiratory Infection Stated Complaint: sinus issue,cough Time Seen by Provider: 11/30/24 11:45 Source: patient, RN notes reviewed and old records reviewed Mode of arrival: ambulatory Limitations: no limitations History of Present Illness HPI Narrative: [age] female presents to the [facility] with 3 day history of sinus congestion, chest congestion, cough for 3 days. Also reports generalized body aches. Has taken Tylenol and Mucinex. Denies fevers. Denies chest pain. Onset (ago): day(s) (3) Related Data Home Medications ?Medication ?Instructions ?Recorded ?Confirmed ?Last Taken ?Type multivitamin (Multiple Vitamins 1 tablet PO DAILY 11/09/19 11/30/24 08/30/24 History tablet) Allergies Allergy/AdvReac Type Severity Reaction Status Date / Time Sulfa (Sulfonamide Allergy Severe Chest Pain Verified 11/30/24 11:26 Antibiotics) aspirin Allergy Mild Anxiety Verified 11/30/24 11:26 codeine Allergy Mild aggrevates Verified 11/30/24 11:26 ulcer naproxen Allergy Mild Swelling Verified 11/30/24 11:26 of Lip/Tongue/Throat celecoxib (From Celebrex) AdvReac Ulcers Verified 11/30/24 11:26 NSAIDS (Non-Steroidal AdvReac Ulcers Verified 11/30/24 11:26 Anti-Inflamma Review of Systems Review of Systems: All systems reviewed & are unremarkable except as noted in HPI and below Constitutional: Constitutional: Reports no additional constitutional complaints ENT: Reports as per HPI Cardiovascular: Cardiovascular: Reports no additional cardiovascular complaints, Denies chest pain and Denies dyspnea Respiratory: Respiratory: Reports as per HPI, Reports chest congestion, Reports cough and Denies dyspnea Musculoskeletal: Musculoskeletal: Reports no additional musculoskeletal complaints Integumentary/Breasts: Skin/Breast: Reports system reviewed and no additional complaints, except as docu PMFSH Past Medical History Medical History Esophageal web GERD (gastroesophageal reflux disease) Anxiety Hyperlipidemia LAE (left atrial enlargement) Palpitations Shingles Arthritis UTI (urinary tract infection) Left inguinal hernia Hx of colonic polyps Gastric ulcer Pneumonia Bronchitis Mitral valve prolapse Migraines Anxiety disorder, unspecified Gastro-esophageal reflux disease without esophagitis Pure hypercholesterolemia Surgical History Surgical History History of lumpectomy of left breast Hx of section Hx of tubal ligation Hx of left inguinal hernia repair Family History Family History Father Carcinoma of colon Mother Acute myocardial infarction Heart disease Sibling Brain aneurysm Colon cancer Other Family history of malignant neoplasm of breast Social History Social History Smoking status: Never smoker Second hand tobacco smoke exposure: No Smoking end date: 11/17/71 Alcohol intake: current Drinks per week: 4 Substance use: never Substance use type: does not use Lack of Transportation: No Lack of Food: Never True Current Housing: I Have Housing Concerned About Future Housing: No Difficulty Paying Gas/Electric Bills: No Difficulty Paying for Meds: No Currently Unemployed: No Education: High School Diploma/GED Difficulty w/ Childcare or Family Care: No Living arrangements: with family Gender identity (if verbalized by the patient): Female Spiritual care concerns: No Comments At the time of my signature, I reviewed and agree with the nursing past medical, surgical, social, and family history. There is no relevant family history pertinent to the patient complaint. Exam Const: General: cooperative, healthy appearing, comfortable, no acute distress, well developed, alert and well nourished Nutritional Appearance: well nourished Orientation/consciousness: patient oriented x3 Limitations: no limitations HENMT: Head: normal to inspection Ears: hearing grossly normal bilaterally, external ears normal, EAC's normal, mastoids normal and no periauricular adenopathy Eyes: General: appearance normal, both eyes and all related structures Alignment and Position: alignment normal Neck: Neck: normal visual inspection, full ROM, no lymphadenopathy and no meningeal signs Chest: Chest palpation & inspection: normal inspection of the chest Resp: Effort & Inspection: normal respiratory effort and able to speak in complete sentences Auscultation: no rales, no rhonchi and wheezes expiratory wheezes and throughout Cardio: Rate: regular rate Skin: General skin exam: normal color and no rashes or lesions noted Neuro: General: patient oriented x3, gait normal, moves all extremities and no meningeal signs Cognition (Neuro): normal cognition Speech: normal speech Gait exam (Neuro): Normal gait present Extrem: General: normal to inspection, full ROM, capillary refill normal and normal gait Psych: Appearance: grossly normal and well kempt Mental Status: mental status grossly normal Speech and movement: Normal speech and movement present and Clear speech present Affect: normal affect Attitude: cooperative Course Course Level of Care: Express Care Visit Vital Signs Vital signs: Vital Signs Temperature 98.3 F 11/30/24 11:35 Pulse Rate 91 11/30/24 11:35 Respiratory Rate 18 11/30/24 11:35 Blood Pressure 150/80 H 11/30/24 11:35 Pulse Oximetry 100 11/30/24 11:35 Oxygen Delivery Room Air 11/30/24 11:35 Temperature 98.3 F 11/30/24 11:35 Pulse Rate 91 11/30/24 11:35 Respiratory Rate 18 11/30/24 11:35 Blood Pressure 150/80 H 11/30/24 11:35 Pulse Oximetry 100 11/30/24 11:35 Oxygen Delivery Room Air 11/30/24 11:35 Reviewed MDM - URI/Sore Throat MDM Narrative Medical decision making narrative: Patient sitting in exam room. Nontoxic, vitals stable except blood pressure mildly elevated. Patient's flu COVID negative. Chest x-ray does not show pneumonia. Patient with history of pneumonia, due to patient's age is well, will cover with doxycycline, albuterol. Patient appropriate for outpatient treatment with strict signs and symptoms to proceed to the emergency room which she verbalized understanding Discharge instructions reviewed with patient, as well as provided in writing per nursing staff. The instructions also include specific and strict return/GO TO THE ER as well as f/u information. All questions have been answered, and the patient deny any further questions with discharge and discharge plan. Some parts of this dictation were generated by voice recognition software and may contain typographical and/or grammatical inaccuracies. Differential Diagnosis Differential diagnosis: Likely upper respiratory infection, sinusitis, viral infection, bronchitis, influenza and other (COVID, pneumonia) Lab Data Labs: Lab Results 11/30/24 Range/Units 11:54 POC Influenza A Ag Negative (Negative) POC Influenza B Ag Negative (Negative) POC SARS CoV-2 Ag Negative (Negative) Reviewed Imaging Data Radiologist's impression: EXAMINATION: XR chest 2V DATE: 11/30/2024 12:03 INDICATION: Productive cough. TECHNIQUE: Frontal and lateral views of the chest were obtained. COMPARISON: Chest 2 views 01/12/2015 FINDINGS: There is mild scarring in the upper lobes. No pleural effusion or pneumothorax. The heart size is normal. IMPRESSION: 1. Stable mild scarring in the upper lobes. Critical Care Time Critical Care Time Critical Care Time: No Discharge Plan Discharge Clinical Impression: Bronchitis Patient Disposition: Home, Self-Care Condition: Stable Instructions: Antibiotic Form, Acute Bronchitis (ED) Additional Instructions: Your chest x-ray did not show signs pneumonia Your rapid COVID test were negative Your rapid flu test was negative It is very important to treat your symptoms. Drink plenty of water, Gatorade, Pedialyte, ice pops or Jell-O. Bronchitis symptoms can last for several weeks -Alternate Tylenol and Motrin per package directions for fever or pain. You can alternate every 4 hours -Antihistamine medication such as Zyrtec/Claritin/Diana during the day can help improve symptoms. -doing daily nasal irrigations can help relieve pressure your sinuses. Things like a Neti pot -Use Flonase twice a day for 5 days then daily to help reduce the inflammation and dry up your sinuses. -You can also use Mucinex. Be sure to drink plenty of water with this medication at least 8 ounces with every dose and it is important to drink 8 to 10 glasses of water per day. Water is a natural decongestant -Eat and drink things that are easy to swallow, like tea or soup, or popsicles. -Oral rinses such as: Salt water gargles and/or may use topical anesthetic (eg. Chloraseptic spray) or lozenges to relieve dryness or throat pain). -Frequent hand washing or hand senior materials analyst is one of the best ways to prevent spre ad of infection. -Using a vaporizer or humidifier at night will also help thin secretions and help with coughing up phlegm. -Follow up with primary care provider in 7-10 days if condition is not improving - For new or worsening symptoms go directly to the nearest ER Patient Language: Kinyarwanda Prescriptions: New doxycycline monohydrate 100 mg tablet 100 mg PO BID Qty: 14 0RF albuterol sulfate 90 mcg/actuation HFA aerosol inhaler 2 puff inhalation QID PRN (Reason: shortness of breath or wheezing) Qty: 6.7 0RF (DME) Aerochamber MV Spacer See Rx Instructions .Route Qty: 1 0RF Rx Instructions: As directed No Action multivitamin [Multiple Vitamins] Tablet 1 tablet PO DAILY cetirizine [Zyrtec] 10 mg tablet 10 mg PO DAILY Qty: 90 2RF cholecalciferol (vitamin D3) 25 mcg (1,000 unit) capsule 25 mcg PO DAILY Qty: 90 3RF omeprazole 40 mg capsule,delayed release(DR/EC) 40 mg PO DAILY Qty: 90 3RF simvastatin 40 mg tablet 40 mg PO DAILY Qty: 90 3RF fluticasone propionate 50 mcg/actuation spray,suspension 2 spray NASAL DAILY Qty: 15.8 5RF Rx Instructions: administer into each nostril Follow-up/Referrals: Jarret Bishop DO [Primary Care Provider] [facility] Time of Disposition: 12:35
[2024-11-30 11:35] VITALS: BP 150/80; PULSE 91; RESP 18; TEMP 36.8; O2SAT 100
[2024-11-30 11:56] LABS: EDCOVIDSCREEN Negative (Negative); EDINFLUASCREEN Negative (Negative); EDINFLUBSCREEN Negative (Negative)
== END 2024-11-30 12:36 | disposition home or self-care (01) ==
PROVIDERS: Emergency Provider Nurse Practitioner; PCP Internal Medicine
DX: J40 Bronchitis, not specified as acute or chronic (principal); Z20.822 Contact with and (suspected) exposure to COVID-19; Z87.891 Personal history of nicotine dependence; K21.9 Gastro-esophageal reflux disease without esophagitis; E78.5 Hyperlipidemia, unspecified; I34.1 Nonrheumatic mitral (valve) prolapse; E78.00 Pure hypercholesterolemia, unspecified; M19.90 Unspecified osteoarthritis, unspecified site
CPT/HCPCS: 71046; 87426; 87804; 99213; G0463